=== PATIENT | male | born 1965 | race Caucasian/White ===

== ENCOUNTER 2017-06-30 08:31 | Day surgery (SDC) | payer OTHER ==
[2017-06-30 09:34] VITALS: BMI 23.7
--- NOTE | 2017-06-30 10:14 | PROC ---
Endoscopy Procedure Endoscopy procedure completed. Please see scanned procedure report.
[2017-06-30] MEDS ORDERED: PROPOFOL 20 ML ONE ×5 (11:01)
[2017-06-30 12:27] VITALS: BP 123/70; PULSE 70; TEMP 98.2
--- NOTE | 2017-07-01 15:58 | PATH ---
Surgical Pathology Report Patient Name: JUAN FRANCISCO AGUILLON [facility]. Rec. #: [id number] /Age/Gender: 1965 (Age: 52) / M Account: [id number] Location: [facility]-ENDOSCOPY Taken: 06/30/2017 Received: 06/30/2017 Reported: 07/01/2017 Physicians: Ferdinand Dye M.D. Specimen(s) Received A: SIGMOID COLON POLYP B: RECTAL POLYP Clinical History Screening Postoperative diagnosis: Sigmoid/rectal colon polyps Final Diagnosis A. SIGMOID COLON POLYP, POLYPECTOMY: TUBULAR ADENOMA. B. RECTAL POLYP, POLYPECTOMY: TUBULAR ADENOMA. Electronically Signed Ethan Lomeli M.D. Gross Description A. Received in formalin labeled "sigmoid colon polyp," is a 1.5 x 0.7 x 0.3 cm anthony, polypoid portion of soft tissue. The specimen is submitted in toto in one cassette. B. Received in formalin, labeled "biopsy rectal polyp" are 2 anthony, irregular portions of soft tissue measuring 0.3 and 0.4 cm. in greatest dimension. The specimens are submitted in toto in one cassette. /06/30/2017 saudi06/30/2017
== END 2017-06-30 12:28 | disposition home or self-care (01) ==
LOC: JASU-ENDO 08:31
PROVIDERS: ATTEND Internal Medicine Gastroenterology
PROC: 0DBP8ZX Excision of Rectum, Via Natural or Artificial Opening Endoscopic, Diagnostic (ICD-10-PCS; 2017-06-30)
PROC: 3E0H8GC Introduction of Other Therapeutic Substance into Lower GI, Via Natural or Artificial Opening Endoscopic (ICD-10-PCS; 2017-06-30)
PROC: 0DBN8ZX Excision of Sigmoid Colon, Via Natural or Artificial Opening Endoscopic, Diagnostic (ICD-10-PCS; principal; 2017-06-30 10:30)
DX: Z12.11 Encounter for screening for malignant neoplasm of colon (principal); Z86.010 Personal history of colon polyps; D12.5 Benign neoplasm of sigmoid colon; K62.1 Rectal polyp
CPT/HCPCS: 88305-TC